=== PATIENT | male | born 1940 | race Caucasian/White ===

== ENCOUNTER 2020-01-31 05:42 | Inpatient (IN) | payer MEDICARE ==
[2020-01-31] MEDS ORDERED: Azithromycin 500 MG VIAL ONE (06:09)
[2020-01-31] MEDS ORDERED: cefTRIAXone\\ROCEPHIN 2 GM VIAL ONE (06:09)
[2020-01-31 06:22] LABS: Hemoglobin 9.6 g/dL (14.0-18.0); Mean Corpuscular HGB CONC 33.5 g/dL (32.0-36.0); Mean Corpuscular Volume 86.8 fL (78.0-98.0); Mean Platelet Volume 7.4 fL (7.4-10.4); Platelet Count 290 thou/uL (130-400); RBC Distribution Width 15.9 % (11.5-14.5); Red Blood Cell (RBC) Count 3.31 mill/uL (4.70-6.10); White Blood Cell (WBC) Count 20.7 thou/uL (4.8-10.8)
[2020-01-31 06:40] LABS: Band 2 % (5-11); Hypochromia SLIGHT = 6-15 cells (100X) (0-5/hpf); Lymphocytes 6 % (21-51); MDiff Complete? YES; Monocytes 4 % (0-10); Neutrophil 88 % (42-75); Platelet Morphology Comment Appears Adequate
[2020-01-31 06:43] LABS: ALT (SGPT) 14 U/L (8-55); AST (SGOT) 24 U/L (5-34); Albumin 4.1 g/dL (3.4-4.8); Alkaline Phosphatase 70 U/L (40-110); Anion Gap 15 mmol/L (10-20); BUN (Urea Nitrogen) 15 mg/dL (8.4-25.7); Bilirubin, Total 0.6 mg/dL (0.2-1.2); Calc. Creatinine Clearance 0 mL/min (70-130); Calcium 8.8 mg/dL (7.8-10.44); Carbon Dioxide 21 mmol/L (23-31); Chloride 94 mmol/L (98-107); Estimated GFR-MDRD 53; Globulin 3.3 g/dL (2.4-3.5); Glucose 169 mg/dL (83-110); Potassium 4.3 mmol/L (3.5-5.1); Protein, Total 7.4 g/dL (5.8-8.1); Sodium 126 mmol/L (136-145)
[2020-01-31 07:39] LABS: SARS-CoV-2 NAA Rapid Test Not Detected (NotDetected)
--- NOTE | 2020-01-31 07:44 | CT ---
CTA Angio Chest W WO Con 01/31/2020 7:00 AM Indication: Dyspnea Technique: Multiple CTA images were obtained of the thorax with IV contrast. 3-D rendering: MIP della nstructed images were created and reviewed. Comparison: No relevant prior studies available. Findings: Pulmonary arteries: No central or segmental pulmonary embolus is evident. Heart and Aorta: There are prominent coronary artery and thoracic aortic calcifications. 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 Mediastinum:Normal appearing. No enlarged lymph nodes. Lungs:There are areas of subsegmental volume loss involving the lung bases. There is mild hazy perihi lar opacity suspicious for pulmonary edema. No airspace consolidation is evident. There is a calcified granuloma in the lingula. Pleural space: There is a moderate right and small left pleural effusion Upper Abdomen: No acute abnormality. Osseous Structures: There are healed rib deformities involving the posterior lateral left third thro ugh sixth ribs. No acute fracture is evident. There are DISH like changes involving the thoracic spine. There is diffuse osteopenia. There is scattered degenerative and osteoarthritic change present . Soft tissues:No abnormality. Other findings:None. Impression: 1. No central or segmental pulmonary embolus. 2. Findings suspicious for mild CHF
--- NOTE | 2020-01-31 07:51 | RAD ---
Chest AP view INDICATION: Dyspnea COMPARISON: Prior chest radiograph dated June 27, 2005 FINDINGS: Lungs: There is bilateral perihilar interstitial and airspace opacities Cardiac silhouette: There is [id number] cardiomegaly with an aortic valvular prosthesis Pulmonary vasculature: There is pulmonary vascular congestion Pleural spaces: There is small bilateral pleural effusions. Upper abdomen: No abnormality seen. Osseous structures: There are healed rib deformities on the left posterior lateral chest wall. No ac [place] fractures evident. Additional findings: None. IMPRESSION: Findings suspicious for mild CHF
[2020-01-31] MEDS ORDERED: Furosemide 40 MG/4 ML VIAL ONE (08:39)
[2020-01-31 09:09] LABS: Actual Bicarbonate (HCO3a) 21.5 mEq/L (22-28); Analyzer IN Cardio ER; Base Excess (BEa) -2.7 mEq/L (-2.0 to +3.0); CO2 Tension 34.6 mmHg (35.0-45.0); Calcium, Ionized (arterial) 1.12 mmol/L (1.12-1.30); Carboxyhemoglobin (COHb) 0.7 gm% (0.0-3.0); Hemoglobin (Hb) 9.2 g/dL (14.0-18.0); O2 Tension (PaO2), arterial 84.2 mmHg (> 70.0); Potassium - ABG Lab 4.49 mmol/L (3.70-5.30); pH, Arterial 7.41 (7.35-7.45)
[2020-01-31 09:11] LABS: Puncture Site LRA
[2020-01-31 09:49] LABS: Lactic Acid 1.4 mmol/L (0.5-2.2)
[2020-01-31] MEDS ORDERED: Iopamidol-370 76% 500 ML 1 ML ONE (10:23)
[2020-01-31] MEDS ORDERED: Senokot S 8.6-50 MG TAB PO PRN (11:08)
[2020-01-31] MEDS ORDERED: Ondansetron PF 4 MG/2 ML Vial IVP PRN (11:08)
[2020-01-31] MEDS ORDERED: Acetaminophen 325 MG TAB PO PRN (11:08)
[2020-01-31] MEDS ORDERED: methylPREDNISolone Sod Succ 40 MG VIAL IVP SCH (11:15)
[2020-01-31 11:59] LABS: #Basophils 0.1 thou/uL (0.0-0.2); #Lymphocytes 1.2 thou/uL (1.20-3.40); #Neutrophils 13.6 thou/uL (1.40-6.50); %Basophils 0.4 % (0.0-1.0); %Eosinophils 0.3 % (0.0-10.0); %Lymphocytes 7.4 % (21.0-51.0); %Monocytes 6.2 % (0.0-10.0); %Neutrophils 85.7 % (42.0-75.0); Mean Corpuscular HGB CONC 34.4 g/dL (32.0-36.0); Mean Corpuscular Volume 87.1 fL (78.0-98.0); Mean Platelet Volume 7.5 fL (7.4-10.4); Platelet Count 243 thou/uL (130-400); RBC Distribution Width 15.9 % (11.5-14.5); Red Blood Cell (RBC) Count 3.02 mill/uL (4.70-6.10); White Blood Cell (WBC) Count 15.9 thou/uL (4.8-10.8)
[2020-01-31 12:07] LABS: INR-International Normal Ratio 1.1; Prothrombin Time 14.2 sec (12.0-14.7)
--- NOTE | 2020-01-31 12:34 | HP ---
CHIEF COMPLAINT: Shortness of breath. HISTORY OF PRESENT ILLNESS: The patient is a 80-year-old male with a history of hypertension and possible aortic valve replacement who normally goes to [facility]; however, presented to the hospital with complaints of shortness of breath. He states that for the past few days, he has been feeling short of breath; however, for the past day, his shortness of breath has worsened. He decided to come into the ER. He was noted to have an oxygen saturations in the 80s and at this time, he was initially put on nasal cannula and then to high-flow. The patient denies any fevers or chills. He does state that he has been having worsening shortness of breath. He denies any chest tightness, any nausea, vomiting, or diarrhea. Past medical history, all of the information is from the ER records and I have tried to get records from [facility] since the patient is not a very good historian and right now, he is very short of breath to give me a detailed history. PAST MEDICAL HISTORY: Hypertension and hypercholesterolemia. PAST SURGICAL HISTORY: He has had a heart valve replaced. SOCIAL HISTORY: He denies any alcohol use, drug use, or smoking history. He is a full code. Lives alone. REVIEW OF SYSTEMS: All negative except for the ones mentioned in the HPI. PHYSICAL EXAMINATION: VITAL SIGNS: Temperature of 97.5. He is currently 97% on 50% of high-flow, pulse of 74, 128/64, and respirations are 18 to 20. GENERAL: He is awake and alert, appears in respiratory distress. CV: Irregularly irregular. LUNGS: Mild rhonchi to bilateral lung bases. HEART: S1 and S2 present. He does have a systolic murmur to his left sternal border. ABDOMEN: Soft and nontender. Bowel sounds are present x2. EXTREMITIES: He does have one to 2+ lower extremity pitting edema. NEUROLOGIC: Neurovascular, no focal deficits noted. SKIN: No cuts, lesions, or bruises noted. FAMILY HISTORY: No history of heart disease or strokes. LABORATORY RESULTS: He had a chest x-ray, which indicated some mild suspicion of heart failure. He had a CTA, which showed mild CHF, no pulmonary embolism. Upon my interpretation, I did see possible maybe some consolidation to the right and the left lower lung; however, it is unclear. His COVID test was negative. BNP was 353. Sodium of 126, potassium of 4.3, BUN of 15, and creatinine of 1.31. WBCs of 20, hemoglobin of 9.6, and hematocrit of 28.7. His bands were two. His platelets were 290. His D-dimer was 118. His lactate was 2.1. His EKG indicated atrial fibrillation. His troponin was negative initially. ASSESSMENT AND PLAN: The patient is a 80-year-old male, who presents to the hospital with worsening shortness of breath. 1. Acute hypoxic respiratory failure. I did ask the ER to check an ABG before admitting the patient, the patient has been on high-flow for some time. On the ABG, his pH was 7.41; however, his pCO2 on 50% was 84. The patient does not require oxygen at home. Heart failure is a possibility. However, his BNP is not significantly elevated. I do not have an echocardiogram. I will order one or get results from [facility] in regard to his any history. Again with his mildly elevated BNP and mild congestion noted that does not explain the patient's requirement for high-flow. The CT was negative for PE. COVID pneumonia is definitely a possibility, could be early manifestation. Even though his rapid test was negative, I would not take him off the isolation. I would maybe check another COVID test here later today or maybe tomorrow and pneumonia is definitely a possibility. We will start patient on some community-acquired pneumonia antibiotics. The patient denies any smoking history. However, he does have some rhonchi. I will start him on some prophylactic steroids. Again, I do not have a clear picture in regard to why the patient is requiring such high-flow oxygen. Valvular problems are also a possibility. However, the CTA would have indicated some abnormality, it just indicated the aortic valve prosthesis is in place. We will continue high-flow for right now. We will admit patient to the [facility]. We will get pulmonology. I will put him on a full dose anticoagulation since he has atrial fibrillation. The patient states that he is not on any kind of blood thinners. However, again he is unable to clearly tell me things because he is so short of breath. 2. Leukocytosis could be from sepsis, unclear etiology at this time. We will continue antibiotics. 3. Hyponatremia. We will continue to monitor. 4. Acute kidney injury. We will rule out obstruction. The patient actually has been diuresing. He did receive Lasix in the ER. We will monitor that. 5. Deep venous thrombosis prophylaxis. The patient is currently on full-dose anticoagulation. Job ID: [id number]
[2020-01-31] MEDS ORDERED: Enoxaparin Sodium 100 MG/ML SYRINGE ONE (15:07)
[2020-01-31] MEDS ORDERED: methylPREDNISolone Sod Succ 40 MG VIAL ONE (15:07)
[2020-01-31] MEDS: Enoxaparin Sodium 100 MG/ML SYRINGE SC SCH ×3 (15:12→20:48)
[2020-01-31 16:41] LABS: ALT (SGPT) 10 U/L (8-55); AST (SGOT) 21 U/L (5-34); Alkaline Phosphatase 65 U/L (40-110); Anion Gap 17 mmol/L (10-20); BUN (Urea Nitrogen) 14 mg/dL (8.4-25.7); Bilirubin, Total 0.6 mg/dL (0.2-1.2); Calc. Creatinine Clearance 0 mL/min (70-130); Calcium 9.2 mg/dL (7.8-10.44); Carbon Dioxide 20 mmol/L (23-31); Chloride 96 mmol/L (98-107); Estimated GFR-MDRD 61; Glucose 93 mg/dL (83-110); Potassium 4.2 mmol/L (3.5-5.1); Sodium 129 mmol/L (136-145)
[2020-01-31 18:08] LABS: Anion Gap 15 mmol/L (10-20); BUN (Urea Nitrogen) 15 mg/dL (8.4-25.7); Calc. Creatinine Clearance 0 mL/min (70-130); Calcium 9.5 mg/dL (7.8-10.44); Carbon Dioxide 24 mmol/L (23-31); Chloride 96 mmol/L (98-107); Estimated GFR-MDRD 54; Glucose 111 mg/dL (83-110); Magnesium 1.9 mg/dL (1.6-2.6); Potassium 4.2 mmol/L (3.5-5.1); Sodium 131 mmol/L (136-145)
[2020-01-31 19:58] VITALS: BMI 31.0
[2020-01-31] MEDS: Famotidine 20 MG TAB PO SCH (20:48)
[2020-02-01 03:38] LABS: #Monocytes 0.2 thou/uL (0.11-0.59); #Neutrophils 10.8 thou/uL (1.40-6.50); %Basophils 0.2 % (0.0-1.0); %Eosinophils 0.1 % (0.0-10.0); %Lymphocytes 8.3 % (21.0-51.0); %Monocytes 1.4 % (0.0-10.0); %Neutrophils 89.9 % (42.0-75.0); Hemoglobin 9.1 g/dL (14.0-18.0); Mean Corpuscular HGB CONC 33.2 g/dL (32.0-36.0); Mean Corpuscular Hemoglobin 29.2 pg (27.0-31.0); Mean Corpuscular Volume 88.1 fL (78.0-98.0); Mean Platelet Volume 7.5 fL (7.4-10.4); Platelet Count 268 thou/uL (130-400); RBC Distribution Width 15.8 % (11.5-14.5); Red Blood Cell (RBC) Count 3.11 mill/uL (4.70-6.10)
[2020-02-01 04:11] LABS: ALT (SGPT) 13 U/L (8-55); AST (SGOT) 20 U/L (5-34); Albumin 3.8 g/dL (3.4-4.8); Alkaline Phosphatase 60 U/L (40-110); Anion Gap 16 mmol/L (10-20); BUN (Urea Nitrogen) 18 mg/dL (8.4-25.7); Bilirubin, Total 0.5 mg/dL (0.2-1.2); Calc. Creatinine Clearance 67 mL/min (70-130); Calcium 9.2 mg/dL (7.8-10.44); Carbon Dioxide 21 mmol/L (23-31); Chloride 97 mmol/L (98-107); Estimated GFR-MDRD 58; Glucose 124 mg/dL (83-110); Potassium 4.4 mmol/L (3.5-5.1); Protein, Total 6.8 g/dL (5.8-8.1); Sodium 130 mmol/L (136-145)
[2020-02-01] MEDS: Azithromycin 500 MG in Sodium Chloride 0.9% 250 ML 250 ML IVPB SCH (04:57)
[2020-02-01] MEDS: cefTRIAXone\\ROCEPHIN 1 GM in Sodium Chloride 0.9% 100 ML IVPB SCH (05:41)
[2020-02-01] MEDS: Aspirin 81 mg Enteric Coated Tablet PO SCH (07:16)
[2020-02-01] MEDS: methylPREDNISolone Sod Succ 40 MG VIAL IVP SCH (07:16)
[2020-02-01] MEDS: Enoxaparin Sodium 100 MG/ML SYRINGE SC SCH (07:16)
[2020-02-01] MEDS: Famotidine 20 MG TAB PO SCH ×2 (07:16→19:55)
[2020-02-01] MEDS ORDERED: Enoxaparin Sodium 40 MG/0.4 ML SYRINGE SC SCH (09:00)
--- NOTE | 2020-02-01 09:40 | PDOC.HOSPP ---
- Subjective Encounter Date: 02/01/20 Encounter Time: 11:50 Subjective: Patient wanting to go home. In denial about how severe his respiratory issues are. Breathing easily on high flow NC currently. - Objective Vital Signs & Weight: Vital Signs (12 hours) Temp Pulse Ox 02/01/20 08:00 100 02/01/20 07:16 98.4 F 01/31/20 23:50 98.0 F Weight Weight 210 lb Most Recent Monitor Data Heart Rate from ECG 71 NIBP 139/69 NIBP BP-Mean 92 Respiration from ECG 20 SpO2 100 I&O: 01/31/20 02/01/20 02/02/20 06:59 06:59 06:59 Intake Total 100 Output Total 400 Balance -300 Result Diagrams: 02/01/20 03:12 02/01/20 03:12 Hospitalist ROS - Review of Systems Constitutional: denies: fever, chills Respiratory: reports: shortness of breath. denies: cough Cardiovascular: denies: chest pain, palpitations Gastrointestinal: denies: nausea, vomiting, abdominal pain Genitourinary: denies: dysuria, hematuria - Medication Medications: Active Medications Generic Name Dose Route Start Last Admin Trade Name Freq PRN Reason Stop Dose Admin Aspirin 81 mg 02/01/20 09:00 02/01/20 07:16 Aspirin 81 Mg Enteric Coated Tablet PO 81 mg DAILY BLANCA Administration Enoxaparin Sodium 100 mg 01/31/20 21:00 02/01/20 07:16 Enoxaparin Sodium 100 Mg/Ml Syringe SC 100 mg 0900,2100 BLANCA Administration Famotidine 20 mg 01/31/20 21:00 02/01/20 07:16 Famotidine 20 Mg Tab PO 20 mg BID BLANCA Administration Ceftriaxone Sodium 1 gm/ 100 mls @ 200 mls/hr 02/01/20 06:00 02/01/20 05:41 Sodium Chloride IVPB 100 mls 0600 BLANCA Administration Azithromycin 500 mg/ Sodium 250 mls @ 250 mls/hr 02/01/20 05:00 02/01/20 04:57 Chloride IVPB 250 mls 0500 BLANCA Administration Methylprednisolone Sodium Succinate 40 mg 02/01/20 09:00 02/01/20 07:16 Methylprednisolone Sod Succ 40 Mg Vial IVP 40 mg DAILY BLANCA Administration Sodium Chloride 10 ml 01/31/20 21:00 02/01/20 07:16 Flush - Normal Saline 10 Ml Syringe IVF 10 ml Q12HR BLANCA Administration - Exam General Appearance: NAD, awake alert ENT: moist mucosa Heart: RRR, no murmur, no gallops, no rubs Respiratory - other findings: decent air movement bilaterally, no rales or w heezes Gastrointestinal: soft, non-tender, non-distended, normal bowel sounds Psychiatric: normal affect, normal behavior, A&O x 3 Hosp A/P (1) Acute respiratory failure with hypoxia Code(s): J96.01 - ACUTE RESPIRATORY FAILURE WITH HYPOXIA Status: Acute (2) Congestive heart failure Code(s): I50.9 - HEART FAILURE, UNSPECIFIED Status: Acute (3) Aortic valve prosthesis present Code(s): Z95.2 - PRESENCE OF PROSTHETIC HEART VALVE Status: Chronic (4) SIRS (systemic inflammatory response syndrome) Code(s): R65.10 - SIRS OF NON-INFECTIOUS ORIGIN W/O ACUTE ORGAN DYSFUNCTION Status: Acute (5) HTN (hypertension) Code(s): I10 - ESSENTIAL (PRIMARY) HYPERTENSION Status: Chronic (6) HLD (hyperlipidemia) Code(s): E78.5 - HYPERLIPIDEMIA, UNSPECIFIED Status: Chronic - Plan Patient with evidence of congestive heart failure. Will give Lasix 40mg IV BID. Resume Benzapril now that creatinine normalized. Consider starting Coreg at low dose. Resume home Eliquis and stop Lovenox. Consult cardiology and pulmonology. Hypoxia seems out of proportion to the severity of his CHF. ECHO pending. DVT Proph: Eliquis GI Proph: Famotidine BID
[2020-02-01] MEDS ORDERED: Furosemide 40 MG/4 ML VIAL SLOW IVP SCH (09:45)
[2020-02-01] MEDS ORDERED: Lidocaine 5% Patch TD SCH (10:00)
[2020-02-01] MEDS: Furosemide 40 MG/4 ML VIAL SLOW IVP SCH (15:29)
--- NOTE | 2020-02-01 16:19 | CON ---
DATE OF CONSULTATION: REASON FOR CONSULTATION: Arrhythmia. HISTORY OF PRESENT ILLNESS: Mr. Turk is a 80-year-old gentleman, who has been seen and evaluated at [facility]. He has a previous history of cardiac valve replacement. This was performed [address] Trevor Hsu at [facility]. He states he recently had increased shortness of breath, noted over the last several weeks. He tried to get to [facility], but proceeded to [facility]. No chest pain or pressure noted. He does have mild lower extremity edema present. His BNP is slightly elevated, but is less than 400. He did have a CT scan that did suggest mild CHF with no PE and no pleural effusion. PAST MEDICAL HISTORY: Hypertension, hyperlipidemia, aortic valve replacement, unknown if he underwent bypass, records unavailable. SOCIAL HISTORY: No current tobacco or alcohol use. He has a remote smoking history. REVIEW OF SYSTEMS: A 10-point review of systems is reviewed as above, otherwise negative. PHYSICAL EXAMINATION: Vital Signs: Blood pressure 135/62, pulse 68, temperature afebrile. General: The patient is a pleasant gentleman, in no acute distress, appears stated age. Head, Eyes, Ears, Nose and Throat: Sclerae without icterus. Mouth: Moist mucous membranes, normal palate. Neck: No jugular venous distention. Carotid upstroke is brisk. No bruits bilaterally. Lungs: Clear to auscultation. Heart: Regular rate and rhythm, normal S1 and S2. Abdomen: Soft, nontender, nondistended. Extremities: No edema. PERTINENT LABORATORY DATA: Sodium 130, chloride 97, creatinine 1.2. BNP of 353. IMAGING STUDIES: EKG shows atrial fibrillation. IMPRESSION: 1. Shortness of breath. 2. Atrial fibrillation. 3. ? Chronic obstructive pulmonary disease exacerbation. 4. Status post AVR. RECOMMENDATIONS: Current records are limited. He does have underlying atrial fibrillation and states he has been on Eliquis. Again, I would recommend assessing overall LVEF by echo. He is on high-flow oxygen, which is unusual for pure congestive heart failure. He does have a previous history of tobacco abuse and may be complicated by underlying COPD. We will continue to follow with you. Job ID: [id number]
--- NOTE | 2020-02-01 17:22 | CON ---
DATE OF CONSULTATION: 02/01/2020 HISTORY OF PRESENT ILLNESS: Mr. Turk is a 80-year-old male, who presents with one week of shortness of breath. He has a history of hypertension and heart surgery having one of his valves replaced in the past. He is not sure which valve was replaced. His daughter was in the room and really did not add much to the history. Other than that, she could not understand why he got short of breath and wanted to know if we were going to try to figure out why. I reviewed his radiograph and he has a right greater than left effusion and finding suggestive of congestive heart failure. We have no old films for comparison. Prior to this last week, he said he was actually feeling pretty good. He has had no fever, chills, or sweats. Nothing to make him think that he had an infection. He has had no purulent sputum. He has had no COVID exposure. PAST MEDICAL HISTORY: Otherwise remarkable for lipid disorder. SOCIAL HISTORY: He is nonsmoker, nondrinker. He was a heavy smoker. He used to work on elevators. He said he was lighting up to 5 packs per day, but he claims he has not smoked since the late 1970s. FAMILY HISTORY: Negative for lung disease in early age. REVIEW OF SYSTEMS: Ten points are otherwise negative. PHYSICAL EXAMINATION: VITAL SIGNS: He is afebrile. Heart rate is 71, blood pressure 101/83, respiratory rates in the teens, oximetry is 96% on high-flow oxygen. HEENT: Pupils are equal. Sclerae are anicteric. He has slightly dysconjugate gaze. Extraocular movements are full. NECK: Supple without lymphadenopathy. LUNGS: Remarkable for decreased breath sounds at his right base. HEART: Regular rhythm. S1 and S2 audible. He has an aortic valve click. ABDOMEN: Soft and nontender. EXTREMITIES: Without clubbing, cyanosis, or edema. CT was reviewed, it is suggestive of pulmonary edema. His aortic valve prosthesis is visible. LABORATORY DATA: White count is 12.0, hemoglobin is 9.1 Sodium 130, potassium 4.4, chloride 97, bicarb 21, BUN 18, creatinine 1.21. Yesterday; pH 7.41, CO2 of 34, PO2 of 84. He had no evidence of thromboembolic disease on the CT angiogram. IMPRESSION: 1. Congestive heart failure. 2. History of an aortic valve replacement. 3. It is unclear how severe his aortic valvular heart disease was prior to his valve replacement. 4. cardiomyopathy. He has never been hospitalized here before. 5. I do not believe he has a procurement engineer here in town. 6. He appears to be clinically much improved and says he feels much better. I will follow with the other physicians while he is in the intermediate care unit. Echocardiogram and cardiac consultation should be entertained. This was a 50 min consult with greater than 50% of the time spent on the unit with coordination of care. Job ID: [id number] MTDD
[2020-02-01] MEDS: Lidocaine Patch Removal 1 EACH TOP SCH (19:55)
[2020-02-01] MEDS: Magnesium Oxide 400 MG TAB PO SCH (19:55)
[2020-02-01] MEDS: Apixaban 2.5 MG TAB PO SCH (19:55)
[2020-02-01] MEDS ORDERED: Magnesium Oxide 400 MG TAB PO SCH (21:00)
--- NOTE | 2020-02-01 21:06 | EKG ---
Test Reason : Blood Pressure : / mmHG Vent. Rate : 069 BPM Atrial Rate : 064 BPM P-R Int : 000 ms QRS Dur : 090 ms QT Int : 404 ms P-R-T Axes : 000 081 031 degrees QTc Int : 432 ms Accelerated Junctional rhythm with frequent Premature ventricular complexes Low voltage QRS Cannot rule out Anterior infarct , age undetermined Abnormal ECG Confirmed by Tristin SCHNEIDER ([id number]) on 02/01/2020 9:06:39 PM Referred By: ZA Confirmed By:Tristin SCHNEIDER
--- NOTE | 2020-02-01 21:07 | EKG ---
Test Reason : CARDIC CHANGES Blood Pressure : / mmHG Vent. Rate : 088 BPM Atrial Rate : 234 BPM P-R Int : 000 ms QRS Dur : 138 ms QT Int : 408 ms P-R-T Axes : 000 036 134 degrees QTc Int : 493 ms Atrial fibrillation with premature ventricular or aberrantly conducted complexes Non-specific intra-ventricular conduction block Possible Anterolateral infarct , age undetermined Abnormal ECG Confirmed by Tristin SCHNEIDER ([id number]) on 02/01/2020 9:06:55 PM Referred By: ZA Confirmed By:Tristin SCHNEIDER
--- NOTE | 2020-02-01 21:07 | EKG ---
Test Reason : Blood Pressure : / mmHG Vent. Rate : 083 BPM Atrial Rate : 088 BPM P-R Int : 000 ms QRS Dur : 086 ms QT Int : 390 ms P-R-T Axes : 000 074 199 degrees QTc Int : 458 ms Accelerated Junctional rhythm with frequent , and consecutive Premature ventricular complexes Low voltage QRS Septal infarct , age undetermined Abnormal ECG Confirmed by Tristin SCHNEIDER ([id number]) on 02/01/2020 9:06:48 PM Referred By: ZA Confirmed By:Tristin SCHNEIDER
[2020-02-02] MEDS: Azithromycin 500 MG in Sodium Chloride 0.9% 250 ML 250 ML IVPB SCH (04:48)
[2020-02-02] MEDS: Furosemide 40 MG/4 ML VIAL SLOW IVP SCH ×2 (04:54→16:08)
[2020-02-02] MEDS: cefTRIAXone\\ROCEPHIN 1 GM in Sodium Chloride 0.9% 100 ML IVPB SCH (05:58)
[2020-02-02] MEDS ORDERED: Non-Formulary Item 1 EACH (Glucos Sul 2kcl/Msm/Chond/C/Mn [Glucosamine Chondroitin Cap] 1 PO SCH (09:00)
[2020-02-02] MEDS ORDERED: Glucosamine Chondroitin Cap PO SCH (09:00)
[2020-02-02] MEDS ORDERED: Non-Formulary Item 1 EACH (C,E,Zinc,Copper 24/Om3/Lut/Zea [Ocuvite Adult 50 Plus Softgel] PO SCH (09:00)
[2020-02-02] MEDS ORDERED: Non-Formulary Item 1 EACH (Cholecalciferol (Vitamin D3) [Vitamin D] 1000 UNIT Capsule) PO SCH (09:00)
[2020-02-02] MEDS ORDERED: Fish Oil 1,000 MG CAP PO SCH (09:00)
[2020-02-02] MEDS ORDERED: Non-Formulary Item 1 EACH (Vitamin B Complex [B Complex] 1 TABLET Tablet) PO SCH (09:00)
--- NOTE | 2020-02-02 10:36 | PRG ---
DATE OF SERVICE: 02/02/2020 SUBJECTIVE: Jamin Turk is stable. He is afebrile. Heart rate is in the 70s, blood pressure 139/82. Written an order to decrease his O2. I have also ordered spirometry. We are awaiting his echocardiogram. IMPRESSION: 1. Right greater than left pleural effusion, most likely related to cardiomyopathy. 2. History of tobacco. Rule out COPD. Spirometry has been ordered. Job ID: [id number]
[2020-02-02] MEDS: Cholecalciferol 1,000 UNITS (25 MCG) TAB PO SCH (10:49)
[2020-02-02] MEDS: Apixaban 2.5 MG TAB PO SCH ×2 (10:49→20:19)
[2020-02-02] MEDS: Aspirin 81 mg Enteric Coated Tablet PO SCH (10:49)
[2020-02-02] MEDS: Famotidine 20 MG TAB PO SCH ×2 (10:49→20:18)
[2020-02-02] MEDS: Lidocaine 5% Patch TD SCH (10:50)
[2020-02-02] MEDS: Lisinopril 20 MG TAB PO SCH (10:50)
[2020-02-02] MEDS: Magnesium Oxide 400 MG TAB PO SCH ×2 (10:50→20:18)
[2020-02-02] MEDS: Fish Oil 1,000 MG CAP PO SCH (10:50)
[2020-02-02] MEDS: methylPREDNISolone Sod Succ 40 MG VIAL IVP SCH (10:51)
[2020-02-02] MEDS: Rosuvastatin 10 MG TAB PO SCH (10:51)
[2020-02-02] MEDS: Stress 600 With Zinc 1 TAB PO SCH (10:51)
--- NOTE | 2020-02-02 17:09 | PDOC.HOSPP ---
- Subjective Encounter Date: 02/02/20 Subjective: The patient is requiring less oxygen today. - Objective Vital Signs & Weight: Vital Signs (12 hours) Temp Pulse Ox 02/02/20 13:53 100 02/02/20 07:52 97 02/02/20 07:40 98.1 F Weight Weight 210 lb Most Recent Monitor Data Heart Rate from ECG 109 NIBP 138/79 NIBP BP-Mean 98 Respiration from ECG 23 SpO2 99 I&O: 02/01/20 02/02/20 02/03/20 06:59 06:59 06:59 Intake Total 100 1000 Output Total 400 2300 Balance -300 -1300 Result Diagrams: 02/01/20 03:12 02/01/20 03:12 Additional Labs: Accuchecks 02/01/20 23:15 POC Glucose 109 H Hospitalist ROS - Medication Medications: Active Medications Generic Name Dose Route Start Last Admin Trade Name Freq PRN Reason Stop Dose Admin Apixaban 2.5 mg 02/01/20 21:00 02/02/20 10:49 Apixaban 2.5 Mg Tab PO 2.5 mg BID BLANCA Administration Aspirin 81 mg 02/01/20 09:00 02/02/20 10:49 Aspirin 81 Mg Enteric Coated Tablet PO 81 mg DAILY BLANCA Administration Cholecalciferol 1,000 units 02/02/20 09:00 02/02/20 10:49 Cholecalciferol 1,000 Units (25 Mcg) Tab PO 1,000 units DAILY BLANCA Administration Famotidine 20 mg 01/31/20 21:00 02/02/20 10:49 Famotidine 20 Mg Tab PO 20 mg BID BLANCA Administration Fish Oil 2,000 mg 02/02/20 09:00 02/02/20 10:50 Fish Oil 1,000 Mg Cap PO 2,000 mg DAILY BLANCA Administration Furosemide 40 mg 02/01/20 14:00 02/02/20 16:08 Furosemide 40 Mg/4 Ml Vial SLOW IVP 40 mg 0600,1400 BLANCA Administration Ceftriaxone Sodium 1 gm/ 100 mls @ 200 mls/hr 02/01/20 06:00 02/02/20 05:58 Sodium Chloride IVPB 100 mls 0600 BLANCA Administration Azithromycin 500 mg/ Sodium 250 mls @ 250 mls/hr 02/01/20 05:00 02/02/20 04:48 Chloride IVPB 250 mls 0500 BLANCA Administration Lidocaine 1 patch 02/02/20 09:00 02/02/20 10:50 Lidocaine 5% Patch TD 1 patch DAILY BLANCA Administration Lisinopril 40 mg 02/02/20 09:00 02/02/20 10:50 Lisinopril 20 Mg Tab PO 40 mg DAILY BLANCA Administration Magnesium Oxide 400 mg 02/01/20 21:00 02/02/20 10:50 Magnesium Oxide 400 Mg Tab PO 400 mg BID BLANCA Administration Methylprednisolone Sodium Succinate 40 mg 02/01/20 09:00 02/02/20 10:51 Methylprednisolone Sod Succ 40 Mg Vial IVP 40 mg DAILY BLANCA Administration Miscellaneous Medication 1 each 02/01/20 21:00 02/01/20 19:55 Lidocaine Patch Removal 1 Each TOP 1 each 2100 BLANCA Administration Multivitamins/Zinc 1 tab 02/02/20 09:00 02/02/20 10:51 Stress 600 With Zinc 1 Tab PO 1 tab DAILY BLANCA Administration Rosuvastatin Calcium 10 mg 02/02/20 09:00 02/02/20 10:51 Rosuvastatin 10 Mg Tab PO 10 mg DAILY BLANCA Administration Sodium Chloride 10 ml 01/31/20 21:00 02/02/20 10:51 Flush - Normal Saline 10 Ml Syringe IVF 10 ml Q12HR BLANCA Administration - Exam General Appearance: awake alert ENT: normocephalic atraumatic Neck: supple, no JVD Respiratory: normal chest expansion, no tachypnea, rhonchi Gastrointestinal: soft Neurological: no focal deficits Hosp A/P (1) Acute respiratory failure with hypoxia Code(s): J96.01 - ACUTE RESPIRATORY FAILURE WITH HYPOXIA Status: Acute (2) Pleural effusion Code(s): J90 - PLEURAL EFFUSION, NOT ELSEWHERE CLASSIFIED Status: Acute (3) Congestive heart failure Code(s): I50.9 - HEART FAILURE, UNSPECIFIED Status: Acute (4) COPD (chronic obstructive pulmonary disease) Status: Acute - Plan Respiratory failure is likely due to CHF exacerbation and pleural effusion. Patient is diuresing well. Negative fluid balance over the past 24 hours. Respiratory status is improving. Unclear if there is a COPD component as well. Continue evaluation by pulmonology.
--- NOTE | 2020-02-02 18:25 | PDOC.CPN ---
- Subjective Date: 02/02/20 Time: 14:45 Interval history: No complaints. Breathing much better overall. Diuresing well. - Review of Systems General: denies: fever/chills, weight/appetite/sleep changes, night sweats, fatigue Respiratory: denies: cough, congestion, shortness of breath, exercise intolerance Cardiovascular: denies: chest pain, palpitation, edema, paroxysmal nocturnal dyspnea, orthopnea Gastrointestinal: denies: nausea, vomiting, diarrhea, constipation, abd pain, GI bleeding Musculoskeletal: denies: pain, tenderness, stiffness, swelling, a rthritis/arthralgias Neurological: denies: numbness, syncope, seizure, weakness - Objective Allergies/Adverse Reactions: Allergies Allergy/AdvReac Type Severity Reaction Status Date / Time No Known Allergies Allergy Unverified 01/31/20 12:20 Visit Medications: Current Medications Acetaminophen (Acetaminophen 325 Mg Tab) 650 mg PO Q8H PRN PRN Reason: Headache/Fever/Mild Pain (1-3) Apixaban (Apixaban 2.5 Mg Tab) 2.5 mg PO BID [facility] Last Admin: 02/02/20 10:49 Dose: 2.5 mg Documented by: Aspirin (Aspirin 81 Mg Enteric Coated Tablet) 81 mg PO DAILY [facility] Last Admin: 02/02/20 10:49 Dose: 81 mg Documented by: Cholecalciferol (Cholecalciferol 1,000 Units (25 Mcg) Tab) 1,000 units PO DAILY [facility] Last Admin: 02/02/20 10:49 Dose: 1,000 units Documented by: Famotidine (Famotidine 20 Mg Tab) 20 mg PO BID [facility] Last Admin: 02/02/20 10:49 Dose: 20 mg Documented by: Fish Oil (Fish Oil 1,000 Mg Cap) 2,000 mg PO DAILY [facility] Last Admin: 02/02/20 10:50 Dose: 2,000 mg Documented by: Furosemide (Furosemide 40 Mg/4 Ml Vial) 40 mg SLOW IVP 0600,1400 [facility] Last Admin: 02/02/20 16:08 Dose: 40 mg Documented by: Ceftriaxone Sodium 1 gm/ (Sodium Chloride) 100 mls @ 200 mls/hr IVPB 0600 [facility] Last Admin: 02/02/20 05:58 Dose: 100 mls Documented by: Azithromycin 500 mg/ Sodium (Chloride) 250 mls @ 250 mls/hr IVPB 0500 [facility] Last Admin: 02/02/20 04:48 Dose: 250 mls Documented by: Lidocaine (Lidocaine 5% Patch) 1 patch TD DAILY [facility] Last Admin: 02/02/20 10:50 Dose: 1 patch Documented by: Lisinopril (Lisinopril 20 Mg Tab) 40 mg PO DAILY [facility] Last Admin: 02/02/20 10:50 Dose: 40 mg Documented by: Magnesium Oxide (Magnesium Oxide 400 Mg Tab) 400 mg PO BID [facility] Last Admin: 02/02/20 10:50 Dose: 400 mg Documented by: Methylprednisolone Sodium Succinate (Methylprednisolone Sod Succ 40 Mg Vial) 40 mg IVP DAILY [facility] Last Admin: 02/02/20 10:51 Dose: 40 mg Documented by: Miscellaneous Medication (Lidocaine Patch Removal 1 Each) 1 each TOP 2100 [facility] Last Admin: 02/01/20 19:55 Dose: 1 each Documented by: Multivitamins/Zinc (Stress 600 With Zinc 1 Tab) 1 tab PO DAILY [facility] Last Admin: 02/02/20 10:51 Dose: 1 tab Documented by: Ondansetron HCl (Ondansetron Pf 4 Mg/2 Ml Vial) 4 mg IVP Q6H PRN PRN Reason: Nausea/Vomiting Rosuvastatin Calcium (Rosuvastatin 10 Mg Tab) 10 mg PO DAILY [facility] Last Admin: 02/02/20 10:51 Dose: 10 mg Documented by: Senna/Docusate Sodium (Senokot S 8.6-50 Mg Tab) 2 tab PO BID PRN PRN Reason: Constipation Sodium Chloride (Flush - Normal Saline 10 Ml Syringe) 10 ml IVF Q12HR [facility] Last Admin: 02/02/20 10:51 Dose: 10 ml Documented by: Sodium Chloride (Flush - Normal Saline 10 Ml Syringe) 10 ml IVF PRN PRN PRN Reason: Saline Flush Vital Signs & Weight: Vital Signs Temp Pulse Ox 02/02/20 13:53 100 02/02/20 07:52 97 02/02/20 07:40 98.1 F Weight 210 lb - Physical Exam General: alert & oriented x3, appears well, no apparent distress HEENT: mucus membranes moist Neck: supple neck Cardiac: other (IRR IRR) Lungs: bibasilar rales Neuro: grossly intact Abdomen: unremarkable, non-tender, other (mild distention) Skin: clear Musculoskeletal: no pain - Labs Result Diagrams: 02/01/20 03:12 02/01/20 03:12 Troponin/CKMB Troponin I Less than 0.010 ng/mL (< 0.028) 01/31/20 06:06 - Assessment/Plan Assessment/Plan: 1. Acute diastolic CHF 2. COPD exacerbation 3. AF 4. Intermittent LBBB Continue diuresis. Rate-controlled. ECHO pending. On Eliquis.
[2020-02-02] MEDS: Lidocaine Patch Removal 1 EACH TOP SCH (20:19)
[2020-02-03] MEDS: Azithromycin 500 MG in Sodium Chloride 0.9% 250 ML 250 ML IVPB SCH (05:20)
[2020-02-03] MEDS: cefTRIAXone\\ROCEPHIN 1 GM in Sodium Chloride 0.9% 100 ML IVPB SCH (06:31)
[2020-02-03] MEDS: Furosemide 40 MG/4 ML VIAL SLOW IVP SCH (06:31)
[2020-02-03] MEDS: Lidocaine 5% Patch TD SCH (08:35)
[2020-02-03] MEDS: Rosuvastatin 10 MG TAB PO SCH (08:36)
[2020-02-03] MEDS: Cholecalciferol 1,000 UNITS (25 MCG) TAB PO SCH (08:36)
[2020-02-03] MEDS: Apixaban 2.5 MG TAB PO SCH (08:36)
[2020-02-03] MEDS: Lisinopril 20 MG TAB PO SCH (08:36)
[2020-02-03] MEDS: Magnesium Oxide 400 MG TAB PO SCH (08:36)
[2020-02-03] MEDS: Aspirin 81 mg Enteric Coated Tablet PO SCH (08:36)
[2020-02-03] MEDS: Fish Oil 1,000 MG CAP PO SCH (08:36)
[2020-02-03] MEDS: Famotidine 20 MG TAB PO SCH (08:36)
[2020-02-03] MEDS: methylPREDNISolone Sod Succ 40 MG VIAL IVP SCH (08:37)
[2020-02-03] MEDS: Stress 600 With Zinc 1 TAB PO SCH (08:37)
[2020-02-03 11:21] VITALS: TEMP 98.4
[2020-02-03 12:05] VITALS: BP 143/73
--- NOTE | 2020-02-03 13:07 | PRG ---
DATE OF SERVICE: 02/03/2020 SUBJECTIVE: Mr. Turk is doing much better. He is off high-flow oxygen. He would like to go home. He states his breathing is back to baseline. OBJECTIVE: VITAL SIGNS: Blood pressure 142/73, pulse 72, temperature afebrile. LUNGS: Rhonchi and rales bilaterally. HEART: Irregularly irregular. ABDOMEN: Soft, nontender, and nondistended. EXTREMITIES: 1+ pitting edema. PERTINENT LABORATORY DATA: Hemoglobin 9.0. Creatinine 1.2. Prelim echo shows LVEF 50% to 55%. Mild AI present. TAVR appears to be well-seated. Right ventricle appears enlarged. IMPRESSION: 1. Shortness of breath. 2. Remote tobacco abuse. 3. ? chronic obstructive pulmonary disease. 4. Status post aortic valve replacement. RECOMMENDATIONS: Mr. Turk's overall LVEF does appear normal. He likely has a component of diastolic dysfunction. He also has intermittent rate related left bundle-branch block. At this point, we will continue rate control in addition to continued anticoagulation therapy. I would continue outpatient Lasix. Mr. Turk appears to be fairly content with his care, but would like to go home. I do feel his daughter would prefer having his care by Dr. Harris Borges. She states they would like to be discharged and follow up with Dr. Borges this afternoon. Job ID: [id number]
--- NOTE | 2020-02-04 00:26 | DIS ---
DATE OF ADMISSION: 01/31/2020 DATE OF DISCHARGE: 02/03/2020 DISCHARGE DIAGNOSES: 1. Acute respiratory failure with hypoxia. 2. Exacerbation of congestive heart failure. 3. Pleural effusion. 4. Hyperlipidemia. 5. Chronic obstructive pulmonary disease. DISCHARGE MEDICATIONS: The patient will continue his home medications. HISTORY OF PRESENT ILLNESS AND HOSPITAL COURSE: The patient is a 80-year-old male with a history of hypertension who presented to the hospital with complaints of shortness of breath. He was found to be hypoxic, requiring BiPAP initially, which was transitioned to high-flow nasal cannula. His chest x-ray revealed pulmonary edema and pleural effusion. He was started on IV diuresis and monitored in the hospital where his symptoms improved dramatically over 48 hours. The patient was successfully weaned off to room air and discharged home with outpatient followup with his manager editorial. Job ID: [id number]
--- NOTE | 2020-02-05 00:55 | PQF ---
CLINICAL DOCUMENTATION CLARIFICATION FORM: Dear : Charles Millan Date / Time: 02/05/2020 Please exercise your independent, professional judgment in responding to the clarification form. Clinical indicators are provided on the bottom of this form for your review Please check appropriate box(es): [ >] Sepsis [ ] Localized infection without sepsis [ ] SIRS due to non-infectious process (please specify etiology) [ ] with organ dysfunction [ ] without organ dysfunction [ ] Other diagnosis [ ] Unable to determine In addition, please specify: Present on Admission (POA): [ > ] Yes [ ] No [ ] Unable to determine To be completed by CDI/Coding staff for physician review: Present Clinical Indicators - Signs / Symptoms / Labs Results and Location in Medical Record [ x ] Leukocytosis could be from sepsis, unclear etiology at this time. Will continue antibiotics H and P [ x ] Patient's signs and symptoms concerning with early presentation of sepsis and was treated with broad-spectrum antibiotics as part of that sepsis management protocol. ED final diagnosis is sepsis. ED provider notes [ x ] Respiratory rates were 32 and 20. Blood progress were 142/92, 143/87 and 149/70. Heart rate was 96 ED provider notes [ x ] SIRS of noninfectious origin without acute organ dysfunction Progress note 01/31 by Duke Alonso MD [ x ] WBCs were 20.7, 15.9 and 12.0 Laboratory Present Risk Factors Results and Location in Medical Record [ x ] Acute respiratory failure with hypoxia, CHF exacerbation Discharge summary [ x ] Acute kidney injury H and P Present Treatments Results and Location in Medical Record [ x ] Sepsis protocol initiated in the ED ED provider notes [ x ] IV Rocephin 01/30-02/02 Medications [ x ] IV Zithromax 01/30-02/02 Medications [ x ] Daily CBCs Laboratory [ x ] Pulmonary consult 01/31 by Rocky Waite MD Reports [facility] Signature: [id number] Phone #: Date/Time: 02/05/2020 This is a permanent part of the Medical Record [facility]
== END 2020-02-03 12:56 | disposition left against medical advice (07) | DRG 871 ==
LOC: ERS 05:42 → ERHOLD 09:48 → IMCU/EMU 19:09
PROVIDERS: ADMIT Internal Medicine; ATTEND Emergency Medicine
DX: A41.9 Sepsis, unspecified organism (principal); J96.01 Acute respiratory failure with hypoxia; I50.31 Acute diastolic (congestive) heart failure; E87.1 Hypo-osmolality and hyponatremia; N17.9 Acute kidney failure, unspecified; J44.1 Chronic obstructive pulmonary disease with (acute) exacerbation; I42.9 Cardiomyopathy, unspecified; I11.0 Hypertensive heart disease with heart failure; R65.10 Systemic inflammatory response syndrome (SIRS) of non-infectious origin without acute organ dysfunction; Z20.828 Contact with and (suspected) exposure to other viral communicable diseases; I48.91 Unspecified atrial fibrillation; I44.7 Left bundle-branch block, unspecified; E78.5 Hyperlipidemia, unspecified; Z95.2 Presence of prosthetic heart valve
CPT/HCPCS: 36415; 36416; 71045; 71275; 80053; 82728; 82805; 83605; 83615; 83735; 83880; 84484; 85025; 85379; 85610; 86140; 87040; 93005; 93306; J0456; J0696; J1650; J1940; J2920; J3490; J7050; Q9967; U0002